=== PATIENT | male | born 1945 | race Caucasian/White ===

== ENCOUNTER → 2016-12-16 | Outpatient (CLI) | payer MEDICARE, BC, OTHER ==
[~2016-12-16] MED LIST: ALLO100; ATOR20TA42; BACT800T5 PO; [UNRECOGNIZED DRUG - OTHER]
[2016-12-16 10:14] LABS: ALKALINE PHOSPHATASE 76 U/L (45-117); ALT (GPT) 45 U/L (12-78); ANION GAP 9 MEQ/L (5-15); AST (GOT) 27 U/L (15-37); BICARBONATE 26.7 MEQ/L (21.0-32.0); BLOOD UREA NITROGEN 18 MG/DL (7-18); CHLORIDE 107 MEQ/L (98-107); GLOMERULAR FILTRATION RATE 62 ML/MIN (>89); GLUCOSE,FASTING 106 MG/DL (74-99); HDL CHOLESTEROL 54.6 MG/DL (40.0-60.0); LDL CHOLESTEROL 90 MG/DL (0-99); POTASSIUM 3.9 MEQ/L (3.5-5.1); SODIUM (NA) 143 MEQ/L (136-145); TOTAL BILIRUBIN ADULT 0.6 MG/DL (0.2-1.0); URIC ACID 7.1 MG/DL (2.6-7.2)
== END ==
LOC: PLAB 07:13
PROVIDERS: ATTEND Urology
DX: I10 Essential (primary) hypertension (principal); C61 Malignant neoplasm of prostate
CPT/HCPCS: 36415; 80053; 80061; 84153; 84550

== ENCOUNTER → 2017-01-03 | Outpatient (CLI) | payer MEDICARE, BC, OTHER | LOC: PLAB 07:14 | PROVIDERS: ATTEND Urology | DX: C61 Malignant neoplasm of prostate (principal) | CPT/HCPCS: 36415; 84153 ==

== ENCOUNTER → 2017-06-20 | Outpatient (CLI) | payer MEDICARE, BC, OTHER ==
[2017-06-20 09:36] LABS: ANION GAP 7 MEQ/L (5-15); AST (GOT) 20 U/L (15-37); BICARBONATE 27.3 MEQ/L (21.0-32.0); BLOOD UREA NITROGEN 20 MG/DL (7-18); CHLORIDE 106 MEQ/L (98-107); GLOMERULAR FILTRATION RATE 72 ML/MIN (>89); GLUCOSE,FASTING 96 MG/DL (74-99); POTASSIUM 3.9 MEQ/L (3.5-5.1); SODIUM (NA) 140 MEQ/L (136-145)
[2017-06-20 09:37] LABS: URIC ACID 6.4 MG/DL (2.6-7.2)
[2017-06-20 09:41] LABS: ALKALINE PHOSPHATASE 64 U/L (45-117); ALT (GPT) 33 U/L (12-78); HDL CHOLESTEROL 53.1 MG/DL (40.0-60.0); LDL CHOLESTEROL 82 MG/DL (0-99); LDL CHOLESTEROL DIRECT 99 MG/DL (0-99); TOTAL BILIRUBIN ADULT 0.7 MG/DL (0.2-1.0)
[2017-06-20 14:20] LABS: HEMOGLOBIN A1a 1.2 %; HEMOGLOBIN Ao 84.7 %; HEMOGLOBIN P3 3.9 %
== END ==
LOC: PLAB 07:06
PROVIDERS: ATTEND Urology
DX: C61 Malignant neoplasm of prostate (principal); M10.9 Gout, unspecified; I10 Essential (primary) hypertension; E78.5 Hyperlipidemia, unspecified; R73.09 Other abnormal glucose
CPT/HCPCS: 36415; 80053; 80061; 83036; 83721; 84153; 84403; 84410; 84550